=== PATIENT | male | born 1955 ===

== ENCOUNTER 2021-08-31 12:11 | Emergency (ER) | payer OTHER, SELFPAY ==
--- NOTE | ~2021-08-31 | XR_ITS ---
EXAMINATION: XR WRIST, RIGHT CLINICAL INFORMATION: Fall. Wrist pain. COMPARISON: None TECHNIQUE: PA, lateral, and oblique views of the right wrist. FINDINGS: Severe radiocarpal joint space narrowing with prominent bony remodeling, subchondral sclerosis, and marginal osteophytes. More moderate osteoarthritis at the triscaphe and 1st carpometacarpal joints. Widening of the scapholunate interval, consistent with a ligament tear. Proximal migration of the capitate, consistent with SLAC wrist. No displaced fracture. Evaluation is somewhat limited due to advanced osteoarthritis. XR/XR wrist RT 2V IMPRESSION: Severe radiocarpal osteoarthritis with bony remodeling. More moderate osteoarthritis at the triscaphe and 1st carpometacarpal joints. Widening of the scapholunate interval, consistent with a ligament injury. Proximal migration of the capitate, consistent with SLAC wrist. No displaced fracture, however, evaluation is limited due to advanced osteoarthritis.
[2021-08-31 13:13] VITALS: BP 164/78; PULSE 50; RESP 16; TEMP 36.6; O2SAT 98; BMI 23.6
--- NOTE | 2021-08-31 15:03 | ED_ITS ---
HPI - Fall General Chief Complaint: Extremity Injury, Upper Stated Complaint: R wrist pain Time Seen by Provider: 08/31/21 14:32 Source: patient Mode of arrival: ambulatory Limitations: no limitations History of Present Illness HPI Narrative: 65-year-old male with a past medical history of hypertension hyperlipidemia presenting to the ED with complaints of right hand/wrist pain after he had a mechanical fall yesterday where he was about to salts his driveway and he slipped and fell on a patch of ice. He tried to place his right hand/wrist out to catch his fall and since then he has been having pain. He reports he hit his head gently but did not lose consciousness and he does not believe he needs a CT scan is declining a CT scan of his brain. He denies being on any blood thinners. He denies any prolonged down time. He denies any headaches, dizziness, change in vision, neck pain, back pain, any other extremity pain, paresthesias, chest pain or shortness of breath or any other symptoms complaints or concerns at this time. MD complaint: fall Onset (ago): day(s) (Yesterday) Fall from: standing Fall witnessed: no Place fall occurred: home (Aside in his driveway about salt the driveway) Loss of consciousness: none Prolonged down time: no Symptoms prior to fall: none Context: tripped/slipped Location of injury - extremities: right: hand (And wrist) Severity: moderate Quality: aching Associated symptoms (after fall): denies Related Data Allergies Allergy/AdvReac Type Severity Reaction Status Date / Time prochlorperazine AdvReac Muscle Verified 08/31/21 13:13 [From Compazine] cramps Review of Systems Review of Systems: Constitutional : No Weight loss, No Fever, No Chills, No Night Sweats, No Fatigue, No Malaise ENT/Mouth : No Hearing loss, No Ear Pain, No Nasal Congestion, No Sinus Pain, No Hoarseness, No sore throat, No Rhinorrhea, No Swallowing Difficulty Eyes: No Eye Pain, No Swelling, No Redness, No Foreign Body, No Discharge, No Vision Changes Cardiovascular : No Chest Pain, No SOB, No Dyspnea on Exertion, No Orthopnea, No Edema, No Palpitations Respiratory : No Cough, No Sputum, No Wheezing, No Smoke Exposure, No Dyspnea Gastrointestinal : No Nausea, No Vomiting, No Diarrhea, No Constipation, No abdominal Pain, No Hematochezia, No Melena Genitourinary : no irregular bleeding, No Dysuria, No Urinary Frequency, No Hematuria, No Urinary Incontinence, No Urgency, No Flank Pain, No Urinary Flow Changes, No Hesitancy Musculoskeletal : + right hand/wrist joint pain, No Myalgias, No Joint Swelling Skin : No Skin Lesions, No rash Neuro : No Weakness, No Numbness, No Paresthesias, No Loss of Consciousness, No Dizziness, No Headache Psych : No Anxiety/Panic, No Depression, No SI/HI/AH/VH, No Social Issues, Heme/Lymph: No Bruising, No Bleeding,No Lymphadenopathy Endocrine : No Polyuria, No Polydipsia, No Temperature Intolerance Yes all other systems are reviewed and are negative [facility] Past Medical History Attestation statement: The following information was validated with the patient. Medical History HTN (hypertension) Hyperlipidemia Surgical History H/O heart artery stent Social History Social History Advance Directives: No Advance Directives Information Provided: No Physical Exam Vital Signs: Vital Signs: Last Vital Signs Temp 98 F 08/31/21 13:13 Pulse 50 08/31/21 13:13 Resp 16 08/31/21 13:13 BP 164/78 H 08/31/21 13:13 Pulse Ox 98 08/31/21 13:13 BMI result Body Mass Index 23.6 vital signs have been reviewed as normal and appeared to be correct. Blood pressure normal. Heart rate normal. Respiration rate normal. Temperature normal. Oxygen saturation normal. Appearance: Alert. Oriented X3. No acute distress. Head: Normal external exam. Normocephalic. Atraumatic. No Piper signs noted. No raccoon eyes noted Eyes: PERRLA. EOMI. Conjunctiva and sclera normal. Eyelids normal. ENT: EAC normal. TM's Normal. No septal hematoma noted. No hemotympanum noted. Pharynx normal. Uvula midline. Moist mucous membranes. No trismus noted. No drooling noted. No muffled voice noted. Neck: Normal inspection. Neck supple. FROM. No adenopathy. No meningeal signs. CVS: Normal heart rate and rhythm. Heart sound normal. Pulses normal throughout. Respiratory: No respiratory distress. Painless inspiration. Back: Full range of motion noted. No rashes/lesion/induration/fluctuance or signs of infection noted. Skin: Skin warm and dry. Normal skin color. Normal skin turgor. No rashes/lesions/lacerations noted. Extremities: To right hand/wrist joint patient has mild tenderness to palpation to the carpals and he does have limited range of motion with flexion and dorsiflexion of the wrist although he reports that this is chronic. He does have some soft tissue swelling. No obvious ligamentous or tendon injury noted on my exam at this time. No edema noted. No signs of infection. Olguin all other Extremities exhibit normal range of motion and nontender. Neuro: Oriented X 3. No motor deficit. No sensory deficit. Reflexes normal. Normal steady gait. No focal neuro deficits noted. Vascular: + radial pulses. Normal cap refill. No cyanosis noted to upper extremity nails Course Course Course Narrative: 65-year-old male with a past medical history of hypertension hyperlipidemia presenting to the ED with complaints of right hand/wrist pain after he had a mec hanical fall yesterday where he was about to salts his driveway and he slipped and fell on a patch of ice. He tried to place his right hand/wrist out to catch his fall and since then he has been having pain. He reports he hit his head gently but did not lose consciousness and he does not believe he needs a CT scan is declining a CT scan of his brain. He denies being on any blood thinners. He denies any prolonged down time. He denies any headaches, dizziness, change in vision, neck pain, back pain, any other extremity pain, paresthesias, chest pain or shortness of breath or any other symptoms complaints or concerns at this time. 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 No displaced fractures however limited evaluation due to advanced osteoarthritis. Therefore at this time will place and a wrist splint and treat symptomatically and instruct patient to follow-up with orthopedics and to return if any new or worsening symptoms. Patient understands agrees with this plan. Procedures Orthopedic Splinting/Casting Injury #1: Side: right Upper Extremity Injury Location: wrist and hand Upper Extremity Immobilizer: thumb spica MDM - Fall Medical Records Attestation: I reviewed the patient's medical records. Imaging Data Right wrist x-ray: Attestation: I personally reviewed and interpreted this imaging study as follows: Radiologist's impression: FINDINGS: Severe radiocarpal joint space narrowing with prominent bony remodeling, subchondral sclerosis, and marginal osteophytes. More moderate osteoarthritis at the triscaphe and 1st carpometacarpal joints. Widening of the scapholunate interval, consistent with a ligament tear. Proximal migration of the capitate, consistent with SLAC wrist. No displaced fracture. Evaluation is somewhat limited due to advanced osteoarthritis.? XR/XR wrist RT 2V IMPRESSION: Severe radiocarpal osteoarthritis with bony remodeling. More moderate osteoarthritis at the triscaphe and 1st carpometacarpal joints. ? Widening of the scapholunate interval, consistent with a ligament injury. Proximal migration of the capitate, consistent with SLAC wrist. ? No displaced fracture, however, evaluation is limited due to advanced osteoarthritis Discharge Plan Discharge Clinical Impression: Fall, Right wrist sprain, Injury of ligament of hand, SLAC (scapholunate advanced collapse) of wrist Patient Disposition: Home, Self-Care Instructions: Sprain (ED), Fall Prevention for Older Adults (ED) Referrals: Gamaliel Gotti MD [Physician] - 2 days (Call tomorrow to make a follow-up appointment within the next 1-2 weeks) Deedee Goldberg NP [Primary Care Provider] - 2 days Print Language: Norwegian
== END 2021-08-31 15:27 | disposition home or self-care (01) ==
PROVIDERS: Emergency Provider Emergency Medicine; PCP Nurse Practitioner Family
DX: S63.601A Unspecified sprain of right thumb, initial encounter (principal); S63.501A Unspecified sprain of right wrist, initial encounter; M79.644 Pain in right finger(s); M25.531 Pain in right wrist; I10 Essential (primary) hypertension; E78.5 Hyperlipidemia, unspecified; W00.0XXA Fall on same level due to ice and snow, initial encounter; Y93.9 Activity, unspecified; Y92.9 Unspecified place or not applicable; Y99.9 Unspecified external cause status; Z79.899 Other long term (current) drug therapy
CPT/HCPCS: 29130; 73100; 99283; 99284

== ENCOUNTER → 2021-09-07 14:31 | Outpatient (BNVA) | payer OTHER, SELFPAY | PROVIDERS: PCP Nurse Practitioner Family; Visit Provider Orthopaedic Surgery ==

== ENCOUNTER 2022-08-15 18:51 | Emergency (ER) | payer OTHER, SELFPAY ==
[2022-08-15 18:52] VITALS: BP 167/92; PULSE 171; RESP 18; TEMP 36.6; O2SAT 98; BMI 21.2
--- NOTE | 2022-08-15 18:54 | ED.ARRPALP ---
HPI - Arrhythmia/Palpitations General Chief Complaint: Arrhythmia/Palpitations Stated Complaint: SVT? heart palpitations Time Seen by Provider: 08/15/22 18:57 Related Data Home Medications Medication Instructions Recorded Confirmed atorvastatin 10 mg tablet 10 mg PO BEDTIME 09/07/21 albuterol sulfate 90 mcg/actuation 2 puff inhalation Q6H PRN wheezing 07/27/22 aerosol inhaler inhalational spacing device #1 ea 07/27/22 ([facility] spacer) metoprolol succinate 25 mg 25 mg PO DAILY 07/27/22 tablet,extended release 24 hr valsartan 80 mg tablet 80 mg PO DAILY 07/27/22 Previous Rx's Medication Instructions Recorded azithromycin 250 mg tablet See Rx Instructions PO .COMPLEX #6 07/27/22 tabs Allergies Allergy/AdvReac Type Severity Reaction Status Date / Time prochlorperazine AdvReac Muscle Verified 08/15/22 19:06 [From Compazine] cramps PMFSH Past Medical History Medical History (Updated 08/15/22 @ 21:13 by Tegan Murry MD) HTN (hypertension) Hyperlipidemia SVT (supraventricular tachycardia) Surgical History H/O heart artery stent Social History Social History Smoked in Last 30 Days: No Use of substances other than those prescribed or required for medical reasons: No Advance Directives: No Advance Directives Information Provided: Yes Current occupational status: employed and retired 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 He feels fast heart rate in his throat. No SOB, dizziness, chest pain. Attempted vagal maneuvers and took metoprolol at home with no improvement. HR 170s in triage. SBP 160s. Taken back to treatment room. Medications Administered Discontinued Medications Generic Name Dose Route Start Last Admin Trade Name Carringtonq PRN Reason Stop Dose Admin Adenosine 6 mg 08/15/22 19:02 08/15/22 19:07 Adenosine 6 Mg/2 Ml Vial IVPUSH 08/15/22 19:03 6 mg STAT STA Administration Medical Decision Making Lab Data 08/15/22 19:17 08/15/22 19:17 Labs: Lab Results 08/15/22 08/15/22 08/15/22 Range/Units 19:17 19:17 19:17 WBC 9.8 (4.8-10.8) X10*3/uL RBC 4.59 L (4.60-5.80) X10*6/uL Hgb 14.1 (14.0-18.0) g/dl Hct 41.0 L (42.0-52.0) % MCV 89.3 (80.0-98.0) fL MCH 30.7 (27.0-33.0) pg MCHC 34.4 (31.0-36.0) g/dl RDW 13.4 (11.0-16.0) % Plt Count 188 (160-400) X10*3/uL MPV 9.4 (9.4-12.4) fL Immature Gran % (Auto) 0.2 (0.0-0.4) % Neut % (Auto) 58.1 (45-73) % Lymph % (Auto) 27.3 (20-40) % [place] % (Auto) 12.7 H (2-11) % Eos % (Auto) 1.0 (0-4) % Baso % (Auto) 0.7 (0-2) % Lymph # (Auto) 2.7 (1.2-4.9) X10*3/uL [place] # (Auto) 1.2 (0.1-1.2) X10*3/uL Eos # (Auto) 0.1 (0.0-0.4) X10*3/uL Baso # (Auto) 0.1 (0.0-0.2) X10*3/uL Abs Immat Gran (auto) 0.02 (0.00-0.03) X10*3/uL Absolute Neuts (auto) 5.7 (2.0-8.3) x10*3/uL Absolute Nucleated RBC 0.000 (0.0-0.012) X10*3/uL Nucleated RBC % (auto) 0.0 (0.0-0.2) /100WBC PT (10.0-13.1) SEC INR (0.9-1.1) Sodium 138 (135-145) mmol/L Potassium 3.3 (3.3-5.1) mmol/L Chloride 104 (96-108) mmol/L Carbon Dioxide 24 (22-29) mmol/L Anion Gap 13 (12-20) BUN 19 H (9-16) mg/dL Creatinine 0.87 (0.5-1.4) mg/dL Estim Creat Clear Calc 72.9 Estimated GFR > 60 Random Glucose 112 (60-115) mg/dL Calcium 9.2 (8.4-10.2) mg/dL Total Bilirubin 0.4 (0.0-1.0) mg/dL Direct Bilirubin < 0.2 (0.0-0.5) mg/dL AST 24 (5-37) U/L ALT 18 (0-40) U/L Alkaline Phosphatase 57 (39-117) U/L Troponin I High Sens 4.1 (<3.5-35.0) ng/L B-Natriuretic Peptide (<100) pg/mL Total Protein 6.3 L (6.5-8.0) g/dL Albumin 3.7 (3.5-5.0) g/dL 08/15/22 08/15/22 Range/Units 19:17 19:17 WBC (4.8-10.8) X10*3/uL RBC (4.60-5.80) X10*6/uL Hgb (14.0-18.0) g/dl Hct (42.0-52.0) % MCV (80.0-98.0) fL MCH (27.0-33.0) pg MCHC (31.0-36.0) g/dl RDW (11.0-16.0) % Plt Count (160-400) X10*3/uL MPV (9.4-12.4) fL Immature Gran % (Auto) (0.0-0.4) % Neut % (Auto) (45-73) % Lymph % (Auto) (20-40) % [place] % (Auto) (2-11) % Eos % (Auto) (0-4) % Baso % (Auto) (0-2) % Lymph # (Auto) (1.2-4.9) X10*3/uL [place] # (Auto) (0.1-1.2) X10*3/uL Eos # (Auto) (0.0-0.4) X10*3/uL Baso # (Auto) (0.0-0.2) X10*3/uL Abs Immat Gran (auto) (0.00-0.03) X10*3/uL Absolute Neuts (auto) (2.0-8.3) x10*3/uL Absolute Nucleated RBC (0.0-0.012) X10*3/uL Nucleated RBC % (auto) (0.0-0.2) /100WBC PT 11.8 (10.0-13.1) SEC INR 1.0 (0.9-1.1) Sodium (135-145) mmol/L Potassium (3.3-5.1) mmol/L Chloride (96-108) mmol/L Carbon Dioxide (22-29) mmol/L Anion Gap (12-20) BUN (9-16) mg/dL Creatinine (0.5-1.4) mg/dL Estim Creat Clear Calc Estimated GFR Random Glucose (60-115) mg/dL Calcium (8.4-10.2) mg/dL Total Bilirubin (0.0-1.0) mg/dL Direct Bilirubin (0.0-0.5) mg/dL AST (5-37) U/L ALT (0-40) U/L Alkaline Phosphatase (39-117) U/L Troponin I High Sens (<3.5-35.0) ng/L B-Natriuretic Peptide 54 (<100) pg/mL Total Protein (6.5-8.0) g/dL Albumin (3.5-5.0) g/dL Discharge Plan Discharge Clinical Impression: SVT (supraventricular tachycardia) Patient Disposition: Home, Self-Care Instructions: Supraventricular Tachycardia (ED) Additional Instructions: Please increase your metoprolol to 50 mg (2 tablets of 25 mg) daily. Please follow-up with your primary care physician tomorrow. If you have any worsening or new symptoms, please return to the emergency room or call 911 Prescriptions: No Action valsartan 80 mg tablet 80 mg PO DAILY metoprolol succinate 25 mg tablet extended release 24 hr 25 mg PO DAILY albuterol sulfate 90 mcg/actuation HFA aerosol inhaler 2 puff inhalation Q6H PRN (Reason: wheezing) (DME) [facility] Spacer See Rx Instructions .ROUTE Q6H Qty: 1 Rx Instructions: As directed azithromycin 250 mg tablet See Rx Instructions PO .COMPLEX Qty: 6 0RF Rx Instructions: take 500 mg today (day 1), then 250 mg for 4 days (days 2-5) PO atorvastatin 10 mg tablet 10 mg PO BEDTIME Interventions: ED Discharge Assessment Last Done: 08/15/22 21:32 Discharge Date/Time: 08/15/22 21:33
[2022-08-15 18:58] VITALS: BP 149/93; PULSE 160; RESP 20; O2SAT 97
--- NOTE | 2022-08-15 19:04 | PC.NURSE ---
Pt medicated with Adenosine 6 mg @ 1903. SVT converting into NSR @ 90 bpm. MD at bedside.
[2022-08-15 19:05] VITALS: BP 151/84; PULSE 92; RESP 16; O2SAT 97
[2022-08-15] MEDS: Adenosine 6 MG/2 ML VIAL IVPUSH (19:07)
--- NOTE | 2022-08-15 19:07 | ECG_ITS ---
Test Reason : TACHYCARDIA Blood Pressure : / mmHG Vent. Rate : 161 BPM Atrial Rate : 000 BPM P-R Int : 000 ms QRS Dur : 138 ms QT Int : 316 ms P-R-T Axes : 000 -82 064 degrees QTc Int : 517 ms Wide QRS tachycardia vs SVT with aberrancy Right bundle branch block Left anterior fascicular block Bifascicular block Abnormal ECG No previous ECGs available Referred By: Tegan Murry Electronically Signed By:URIEL KING
--- NOTE | 2022-08-15 19:09 | ED_ITS ---
HPI - Arrhythmia/Palpitations General Chief Complaint: Arrhythmia/Palpitations Stated Complaint: SVT? heart palpitations Time Seen by Provider: 08/15/22 18:57 Source: patient Mode of arrival: ambulatory Limitations: no limitations History of Present Illness HPI narrative: Patient comes emergency room complaining of palpitations. Patient states he has history of SVT in the past. He has history of failed cardiac ablations. Patient states that usually he is able to stop the palpitations by doing vagal maneuvers. However, this time the vagal maneuvers failed. Patient denies chest pain or shortness of breath. Patient states that he feels the palpitations, otherwise no complaints. Patient is compliant with his medications, takes 25 mg of metoprolol succinate daily. Related Data Home Medications Medication Instructions Recorded Confirmed atorvastatin 10 mg tablet 10 mg PO BEDTIME 09/07/21 albuterol sulfate 90 mcg/actuation 2 puff inhalation Q6H PRN wheezing 07/27/22 aerosol inhaler inhalational spacing device #1 ea 07/27/22 (Homa Wendy C spacer) metoprolol succinate 25 mg 25 mg PO DAILY 07/27/22 tablet,extended release 24 hr valsartan 80 mg tablet 80 mg PO DAILY 07/27/22 Previous Rx's Medication Instructions Recorded azithromycin 250 mg tablet See Rx Instructions PO .COMPLEX #6 07/27/22 tabs Allergies Allergy/AdvReac Type Severity Reaction Status Date / Time prochlorperazine AdvReac Muscle Verified 08/15/22 19:06 [From Compazine] cramps Review of Systems Review of Systems: Constitutional : No Weight loss, No Fever, No Chills, No Night Sweats, No Fatigue, No Malaise ENT/Mouth : No Hearing loss, No Ear Pain, No Nasal Congestion, No Sinus Pain, No Hoarseness, No sore throat, No Rhinorrhea, No Swallowing Difficulty Eyes: No Eye Pain, No Swelling, No Redness, No Foreign Body, No Discharge, No Vision Changes Cardiovascular : No Chest Pain, No SOB, No Dyspnea on Exertion, No Orthopnea, No Edema, complaining of Palpitations Respiratory : No Cough, No Sputum, No Wheezing, No Smoke Exposure, No Dyspnea Gastrointestinal : No Nausea, No Vomiting, No Diarrhea, No Constipation, No abdominal Pain, No Hematochezia, No Melena Genitourinary : no irregular bleeding, No Dysuria, No Urinary Frequency, No Hematuria, No Urinary Incontinence, No Urgency, No Flank Pain, No Urinary Flow Changes, No Hesitancy Musculoskeletal : No joint pain, No Myalgias, No Joint Swelling Skin : No Skin Lesions, No rash Neuro : No Weakness, No Numbness, No Paresthesias, No Loss of Consciousness, No Dizziness, No Headache Psych : No Anxiety/Panic, No Depression, No SI/HI/AH/VH, No Social Issues, Heme/Lymph: No Bruising, No Bleeding,No Lymphadenopathy Endocrine : No Polyuria, No Polydipsia, No Temperature Intolerance [facility] Past Medical History Medical History (Updated 08/15/22 @ 21:13 by Tegan Murry MD) HTN (hypertension) Hyperlipidemia SVT (supraventricular tachycardia) Surgical History H/O heart artery stent Social History Social History Smoked in Last 30 Days: No Use of substances other than those prescribed or required for medical reasons: No Advance Directives: No Advance Directives Information Provided: Yes Current occupational status: employed and retired 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 Oriented X3. No acute distress. Eyes: Pupils equal, round and reactive to light. ENT: Pharynx normal. Neck: Normal inspection. Neck supple. No lymph nodes noted. No crepitus CVS: Tachycardia, regular rhythm, heart rate in the 170s, Pulses normal. Normal S1 and S2 Respiratory: No respiratory distress. Breath sounds normal. No Wheezing. No ral es Abdomen: Soft and nontender. No rigidity. No distention. Skin: Skin warm and dry. Normal skin color. Normal skin turgor. Extremities: No lower extremity edema. No Lacerations. No Rash Neuro: Oriented X 3. No motor deficit. No sensory deficit. Moving all extremities. No slurred speech. CN 2 through 12 grossly intact Psych: calm, cooperative, normal affect Course Course Course Narrative: -on arrival, EKG shows SVT with a heart rate of 160. Blood pressure in the 150 systolic. -patient received 6 mg of IV adenosine, heart rate improved to 82, blood pressure 151/84. Patient now asymptomatic. -of patient's labs are pending Medications Administered Discontinued Medications Generic Name Dose Route Start Last Admin Trade Name Radha PRN Reason Stop Dose Admin Adenosine 6 mg 08/15/22 19:02 08/15/22 19:07 Adenosine 6 Mg/2 Ml Vial IVPUSH 08/15/22 19:03 6 mg STAT STA Administration Medical Decision Making Medical Decision Making [facility] Narrative: -after the 6 mg of adenosine, patient remains in sinus rhythm, rate 61, blood pressure 124/79 -patient instructed to increase metoprolol to 50 mg b.i.d.. Patient states that he got a prescription yesterday for 90 days. Patient will increase his dose to 2 tablets of 25 mg until he runs out. 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 Lab Data 08/15/22 19:17 08/15/22 19:17 Labs: Lab Results 08/15/22 08/15/22 08/15/22 Range/Units 19:17 19:17 19:17 WBC 9.8 (4.8-10.8) X10*3/uL RBC 4.59 L (4.60-5.80) X10*6/uL Hgb 14.1 (14.0-18.0) g/dl Hct 41.0 L (42.0-52.0) % MCV 89.3 (80.0-98.0) fL MCH 30.7 (27.0-33.0) pg MCHC 34.4 (31.0-36.0) g/dl RDW 13.4 (11.0-16.0) % Plt Count 188 (160-400) X10*3/uL MPV 9.4 (9.4-12.4) fL Immature Gran % (Auto) 0.2 (0.0-0.4) % Neut % (Auto) 58.1 (45-73) % Lymph % (Auto) 27.3 (20-40) % [place] % (Auto) 12.7 H (2-11) % Eos % (Auto) 1.0 (0-4) % Baso % (Auto) 0.7 (0-2) % Lymph # (Auto) 2.7 (1.2-4.9) X10*3/uL [place] # (Auto) 1.2 (0.1-1.2) X10*3/uL Eos # (Auto) 0.1 (0.0-0.4) X10*3/uL Baso # (Auto) 0.1 (0.0-0.2) X10*3/uL Abs Immat Gran (auto) 0.02 (0.00-0.03) X10*3/uL Absolute Neuts (auto) 5.7 (2.0-8.3) x10*3/uL Absolute Nucleated RBC 0.000 (0.0-0.012) X10*3/uL Nucleated RBC % (auto) 0.0 (0.0-0.2) /100WBC PT (10.0-13.1) SEC INR (0.9-1.1) Sodium 138 (135-145) mmol/L Potassium 3.3 (3.3-5.1) mmol/L Chloride 104 (96-108) mmol/L Carbon Dioxide 24 (22-29) mmol/L Anion Gap 13 (12-20) BUN 19 H (9-16) mg/dL Creatinine 0.87 (0.5-1.4) mg/dL Estim Creat Clear Calc 72.9 Estimated GFR > 60 Random Glucose 112 (60-115) mg/dL Calcium 9.2 (8.4-10.2) mg/dL Total Bilirubin 0.4 (0.0-1.0) mg/dL Direct Bilirubin < 0.2 (0.0-0.5) mg/dL AST 24 (5-37) U/L ALT 18 (0-40) U/L Alkaline Phosphatase 57 (39-117) U/L Troponin I High Sens 4.1 (<3.5-35.0) ng/L B-Natriuretic Peptide (<100) pg/mL Total Protein 6.3 L (6.5-8.0) g/dL Albumin 3.7 (3.5-5.0) g/dL 08/15/22 08/15/22 Range/Units 19:17 19:17 WBC (4.8-10.8) X10*3/uL RBC (4.60-5.80) X10*6/uL Hgb (14.0-18.0) g/dl Hct (42.0-52.0) % MCV (80.0-98.0) fL MCH (27.0-33.0) pg MCHC (31.0-36.0) g/dl RDW (11.0-16.0) % Plt Count (160-400) X10*3/uL MPV (9.4-12.4) fL Immature Gran % (Auto) (0.0-0.4) % Neut % (Auto) (45-73) % Lymph % (Auto) (20-40) % [place] % (Auto) (2-11) % Eos % (Auto) (0-4) % Baso % (Auto) (0-2) % Lymph # (Auto) (1.2-4.9) X10*3/uL [place] # (Auto) (0.1-1.2) X10*3/uL Eos # (Auto) (0.0-0.4) X10*3/uL Baso # (Auto) (0.0-0.2) X10*3/uL Abs Immat Gran (auto) (0.00-0.03) X10*3/uL Absolute Neuts (auto) (2.0-8.3) x10*3/uL Absolute Nucleated RBC (0.0-0.012) X10*3/uL Nucleated RBC % (auto) (0.0-0.2) /100WBC PT 11.8 (10.0-13.1) SEC INR 1.0 (0.9-1.1) Sodium (135-145) mmol/L Potassium (3.3-5.1) mmol/L Chloride (96-108) mmol/L Carbon Dioxide (22-29) mmol/L Anion Gap (12-20) BUN (9-16) mg/dL Creatinine (0.5-1.4) mg/dL Estim Creat Clear Calc Estimated GFR Random Glucose (60-115) mg/dL Calcium (8.4-10.2) mg/dL Total Bilirubin (0.0-1.0) mg/dL Direct Bilirubin (0.0-0.5) mg/dL AST (5-37) U/L ALT (0-40) U/L Alkaline Phosphatase (39-117) U/L Troponin I High Sens (<3.5-35.0) ng/L B-Natriuretic Peptide 54 (<100) pg/mL Total Protein (6.5-8.0) g/dL Albumin (3.5-5.0) g/dL Discharge Plan Discharge Clinical Impression: SVT (supraventricular tachycardia) Patient Disposition: Home, Self-Care Instructions: Supraventricular Tachycardia (ED) Additional Instructions: Please increase your metoprolol to 50 mg (2 tablets of 25 mg) daily. Please follow-up with your primary care physician tomorrow. If you have any worsening or new symptoms, please return to the emergency room or call 911 Prescriptions: No Action valsartan 80 mg tablet 80 mg PO DAILY metoprolol succinate 25 mg tablet extended release 24 hr 25 mg PO DAILY albuterol sulfate 90 mcg/actuation HFA aerosol inhaler 2 puff inhalation Q6H PRN (Reason: wheezing) (DME) Homa Nguyen [facility] Spacer See Rx Instructions .ROUTE Q6H Qty: 1 Rx Instructions: As directed azithromycin 250 mg tablet See Rx Instructions PO .COMPLEX Qty: 6 0RF Rx Instructions: take 500 mg today (day 1), then 250 mg for 4 days (days 2-5) PO atorvastatin 10 mg tablet 10 mg PO BEDTIME
[2022-08-15 19:23] LABS: MANUAL DIFF FLAG NO
[2022-08-15 19:24] LABS: Basophils Absolute Auto 0.1 X10*3/uL (0.0-0.2); Basophils Percent Auto 0.7 % (0-2); Eosinophils Absolute Auto 0.1 X10*3/uL (0.0-0.4); Hemoglobin 14.1 g/dl (14.0-18.0); Imm Gran Abs Auto 0.02 X10*3/uL (0.00-0.03); Imm Gran Pct Auto 0.2 % (0.0-0.4); Lymphocytes Absolute Auto 2.7 X10*3/uL (1.2-4.9); Lymphocytes Percent Auto 27.3 % (20-40); Mean Corpuscular HGB Conc 34.4 g/dl (31.0-36.0); Mean Corpuscular Hemoglobin 30.7 pg (27.0-33.0); Mean Corpuscular Volume 89.3 fL (80.0-98.0); Mean Platelet Volume 9.4 fL (9.4-12.4); Monocytes Absolute Auto 1.2 X10*3/uL (0.1-1.2); Monocytes Percent Auto 12.7 % (2-11); Neutrophils Absolute Auto 5.7 x10*3/uL (2.0-8.3); Neutrophils Percent Auto 58.1 % (45-73); Platelet Count 188 X10*3/uL (160-400); Red Blood Count 4.59 X10*6/uL (4.60-5.80); Red Cell Distribution Width 13.4 % (11.0-16.0); White Blood Count 9.8 X10*3/uL (4.8-10.8)
[2022-08-15 19:29] LABS: Prothrombin Time 11.8 SEC (10.0-13.1)
[2022-08-15 20:02] LABS: Troponin-I High Sensitivity 4.1 ng/L (<3.5-35.0)
[2022-08-15 20:09] LABS: B Type Natriuretic Peptide 54 pg/mL (<100)
[2022-08-15 20:14] LABS: Alanine Aminotransferase 18 U/L (0-40); Albumin Level 3.7 g/dL (3.5-5.0); Alkaline Phosphatase 57 U/L (39-117); Anion Gap 13 (12-20); Aspartate Amino Transferase 24 U/L (5-37); Bilirubin Direct < 0.2 mg/dL (0.0-0.5); Bilirubin Total 0.4 mg/dL (0.0-1.0); Blood Urea Nitrogen 19 mg/dL (9-16); Calcium 9.2 mg/dL (8.4-10.2); Carbon Dioxide 24 mmol/L (22-29); Chloride 104 mmol/L (96-108); Creatinine Clr Calc Pharmacy 72.9; Estimated Glomerular Filt Rate > 60; Glucose Random 112 mg/dL (60-115); Potassium 3.3 mmol/L (3.3-5.1); Sodium 138 mmol/L (135-145); Total Protein 6.3 g/dL (6.5-8.0)
[2022-08-15 20:27] VITALS: BP 124/79; PULSE 70; RESP 10; O2SAT 96
--- NOTE | 2022-08-15 20:45 | PC.NURSE ---
pt resting comfortably on back on stretcher. pt's at bedside. VSS. skin pwd. pt reports 0/10 pain at this time
[2022-08-15 21:17] VITALS: BP 125/71; PULSE 62; RESP 18; TEMP 36.5; O2SAT 97
--- NOTE | 2022-08-15 21:17 | PC.NURSE ---
this rn assisted pt to bathroom at this time. pt ambulates with no difficulty. pt reports no pain or discomfort. this rn assisted pt back to bed. pt at bedside at this time
--- NOTE | 2022-08-15 21:31 | PC.NURSE ---
iv removed. pt ambulatory at discharge. pt denies pain at this time. skin pwd. pt provided with discharge packet. pt verbalized understanding of discharge plan
== END 2022-08-15 21:33 | disposition home or self-care (01) ==
PROVIDERS: Emergency Provider Emergency Medicine; PCP Nurse Practitioner Family
DX: I47.1 Supraventricular tachycardia (principal); R00.2 Palpitations; I10 Essential (primary) hypertension; E78.5 Hyperlipidemia, unspecified; Z79.899 Other long term (current) drug therapy; Z79.02 Long term (current) use of antithrombotics/antiplatelets
CPT/HCPCS: 36415; 80048; 80076; 83880; 84484; 85025; 85610; 93005; 96374; 99284; J0153

== ENCOUNTER 2022-11-16 15:01 | Outpatient (REF) | payer OTHER, SELFPAY ==
--- NOTE | ~2022-11-16 | XR_ITS ---
EXAMINATION: XR CHEST CLINICAL INFORMATION: Upper respiratory infection COMPARISON: None available. TECHNIQUE: 2 views of the chest were obtained. FINDINGS: No convincing evidence for an acute infiltrate. The lung angel are grossly clear the cardiac silhouette is felt to be within normal limits. The hilar regions do not appear pathologically enlarged. There is no effusion. Degenerative change in the thoracic spine. No compression injury. XR/XR chest 2V IMPRESSION: No convincing evidence for an acute process.
== END 2022-11-16 15:02 | disposition home or self-care (01) ==
LOC: HO.HMGCX 15:01
PROVIDERS: PCP Nurse Practitioner Family; Visit Provider Internal Medicine
DX: J06.9 Acute upper respiratory infection, unspecified (principal)
CPT/HCPCS: 71046

== ENCOUNTER 2022-12-01 19:25 | Emergency (ER) | payer OTHER, SELFPAY ==
--- NOTE | ~2022-12-01 | XR_ITS ---
EXAMINATION: XR CHEST CLINICAL INFORMATION: Palpitations. COMPARISON: Chest radiograph done on 11/16/2022. TECHNIQUE: Frontal view of the chest was obtained. FINDINGS: Interval development of subtle focal opacity is noted at the left cardiophrenic angle, may represent prominent fat versus adjacent pleural parenchymal disease. Otherwise, both lung bases are clear. The heart size is within normal limit. No evidence of any pleural effusion or pneumothorax. Visualized upper abdomen is unremarkable. XR/XR chest 1V IMPRESSION: Subtle opacity at the left cardiophrenic angle, appears new since the prior study dated 11/16/2022, may represent prominent epicardial pad of fat versus adjacent pleural parenchymal disease. No other significant change.
--- NOTE | 2022-12-01 07:09 | ECG_ITS ---
Test Reason : repeat Blood Pressure : / mmHG Vent. Rate : 062 BPM Atrial Rate : 062 BPM P-R Int : 176 ms QRS Dur : 154 ms QT Int : 474 ms P-R-T Axes : 035 -67 009 degrees QTc Int : 481 ms Normal sinus rhythm Right bundle branch block Left anterior fascicular block Bifascicular block Septal infarct , age undetermined Abnormal ECG When compared with ECG of 01-DEC-2022 19:29, Sinus rhythm has replaced Wide QRS tachycardia Vent. rate has decreased BY 86 BPM Referred By: Karthik Huerta Electronically Signed By:URIEL KING
[2022-12-01 19:26] VITALS: BP 192/99; PULSE 154; RESP 18; TEMP 36.7; O2SAT 97; BMI 24.3
--- NOTE | 2022-12-01 19:28 | ECG_ITS ---
Test Reason : SVT Blood Pressure : / mmHG Vent. Rate : 148 BPM Atrial Rate : 000 BPM P-R Int : 000 ms QRS Dur : 144 ms QT Int : 348 ms P-R-T Axes : 000 -88 046 degrees QTc Int : 546 ms Wide QRS tachycardia Right bundle branch block Left anterior fascicular block Bifascicular block Septal infarct , age undetermined Abnormal ECG When compared with ECG of 15-AUG-2022 19:01, No significant change was found Referred By: Dorys Batista Electronically Signed By:URIEL KING
[2022-12-01] MEDS: Adenosine 6 MG/2 ML VIAL IVPUSH (19:46)
--- NOTE | 2022-12-01 19:53 | ED.ARRPALP ---
HPI - Arrhythmia/Palpitations General Chief Complaint: Arrhythmia/Palpitations Stated Complaint: SVT Time Seen by Provider: 12/01/22 19:38 Source: patient Mode of arrival: ambulatory Limitations: no limitations History of Present Illness HPI narrative: 67-year-old male with a history of right bundle-branch block and SVT who presents emergency department for evaluation rapid heart rate. Patient states that the symptoms started at 18:50 hours while he was cooking in his kitchen. The symptoms started suddenly. He states that he felt like his pulse and his carotid artery was throbbing and this is similar to the symptoms that he has felt in the past when he went into SVT. He states that he tried his vagal maneuvers without any relief of his symptoms. He denied lightheadedness, dizziness, chest pain, shortness of breath or dyspnea on exertion. In reviewing his ED record he was here in the emergency department in July of 2022 and was chemically converted with adenosine 6 mg IV push. Related Data Home Medications Medication Instructions Recorded Confirmed atorvastatin 10 mg tablet 10 mg PO BEDTIME 09/07/21 11/16/22 albuterol sulfate 90 mcg/actuation 2 puff inhalation Q6H PRN wheezing 07/27/22 11/16/22 aerosol inhaler inhalational spacing device #1 ea 07/27/22 11/16/22 (Homa Nguyen [facility] spacer) valsartan 80 mg tablet 80 mg PO DAILY 07/27/22 11/16/22 metoprolol succinate 25 mg 50 mg PO DAILY 11/16/22 11/16/22 tablet,extended release 24 hr Previous Rx's Medication Instructions Recorded albuterol sulfate 90 mcg/actuation 1 inh inhalation QID PRN shortness 11/16/22 aerosol inhaler (Ventolin HFA) of breath or wheezing #8.5 grams azithromycin 250 mg tablet See Rx Instructions PO .COMPLEX #6 11/16/22 tabs prednisone 20 mg tablet 60 mg PO DAILY #9 tabs 11/16/22 Allergies Allergy/AdvReac Type Severity Reaction Status Date / Time prochlorperazine AdvReac Muscle Verified 11/16/22 14:49 [From Compazine] cramps Review of Systems Review of Systems: Yes all other systems are reviewed and are negative [facility] Past Medical History [facility] Narrative: Past medical history: Reviewed below, right bundle-branch block social history: He denies tobacco use. He occasionally drinks alcohol and did have 2 [employer] lemonades tonight. Denies drug use. 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 Exam Vital Signs: Vital Signs: Last Vital Signs Temp 98.0 F 12/01/22 20:10 Pulse 66 12/01/22 20:10 Resp 9 L 12/01/22 20:10 BP 140/82 H 12/01/22 20:10 Pulse Ox 96 12/01/22 20:10 O2 Del Method Room Air 12/01/22 20:10 BMI result Body Mass Index 24.3 Const: General: cooperative and no acute distress Orientation/consciousness: oriented to person and oriented to place Limitations: no limitations HEENT: Head: Yes normal to inspection, Yes normocephalic and Yes atraumatic Ears: external ears normal General nose exam: Normal external nose present Face and sinus: Yes normal facial exam Mouth: Normal oral and palatal mucosa present Throat: Yes posterior oropharynx normal Eyes: General: appearance normal, both eyes and all related structures Pupils: Equal, round and reactive pupils present Neck: Neck: Yes normal visual inspection, Yes no lymphadenopathy, Yes trachea midline and Yes supple Chest: Chest palpation & inspection: normal inspection of the chest and normal palpation of entire chest wall Resp: Effort & Inspection: normal respiratory effort and able to speak in complete sentences Auscultation: clear to auscultation bilaterally Cardio: Rate: tachycardic Rhythm: regular rhythm Heart sounds: S1 normal heart sound present, S2 normal heart sound present and no murmurs GI: Inspection: Yes normal to inspection Palpation (GI): Soft to palpation, nontender and no guarding Auscultation: normal bowel sounds : General: Yes no CVA tenderness Back/Spine/Pelvis: Back: no CVA tenderness Skin: General skin exam: no rashes or lesions noted Neuro: General: oriented to person and oriented to place Cranial nerves: Yes CN's II-XII intact bilaterally and Yes Equal, round and reactive pupils present Cognition (Neuro): normal cognition Motor exam (neuro): 5/5 motor strength present throughout Extrem: General: Yes normal to inspection Psych: Appearance: grossly normal Speech and movement: Normal speech and movement present Affect: normal affect Attitude: cooperative Thought process: Normal thought process present Thought content: Normal thought content present Medications Administered Discontinued Medications Generic Name Dose Route Start Last Admin Trade Name Freq PRN Reason Stop Dose Admin Adenosine 6 mg 12/01/22 19:43 12/01/22 19:46 Adenosine 6 Mg/2 Ml Vial IVPUSH 12/01/22 19:44 6 mg ONCE STA Administration Medical Decision Making Medical Decision Making [facility] Narrative: 67-year-old male with a history of SVT with right bundle-branch block presents emergency department for evaluation of palpitations which began at 16:50 hours. He had no other significant symptoms. Patient's physical examination did reveal tachycardia. Patient's initial 12 EKG revealed a wide complex tachycardia with a rate of 148. The patient was placed on a cardiac and O2 saturation monitor. He was given adenosine 6 mg IV push. He initially did not cardiovert but after approximately 10 minutes he did convert to a normal sinus rhythm with a right bundle-branch block. Patient was observed in the emergency department for 30 minutes any remained in a normal sinus rhythm therefore he was discharged home. He was advised to continue taking his medications as prescribed by his provider. Differential Diagnosis Differential diagnosis includes but is not limited to SVT, ventricular tachycardia Independent Interpretation I performed an independent interpretation of an: EKG Interpretation: My independent interpretation of the patient's 1st EKG done at 192 is as follows: Wide complex tachycardia with a rate of 148, prolonged QRS of 144 milliseconds, prolonged QTC of 546 milliseconds. My independent interpretation of the patient's 2nd EKG done at 1954 after receiving his 1 dose of adenosine 6 mg IV is as follows: Sinus tachycardia with rate of 62, normal OR interval of 176 milliseconds, prolonged QRS of 154 milliseconds, prolonged QTC of 481 milliseconds, right bundle-branch block with T-wave abnormalities consistent with a right bundle-branch block. Discharge Plan Discharge Clinical Impression: SVT (supraventricular tachycardia), Right bundle branch block Patient Disposition: Home, Self-Care Instructions: Supraventricular Tachycardia (ED) Additional Instructions: You presented with a wide complex supraventricular tachycardia secondary to a right bundle-branch block. You received adenosine 6 mg IV push in you converted your heart rate to a sinus rhythm with a right bundle-branch block. Continue taking your medications as prescribed by your doctor. If you present to again to emergency department for your rapid heart rate make sure you your providers that you have SVT with a right bundle-branch block. Follow-up with your doctor in 2 days. Please return to the emergency department if your symptoms get worse or if you develop any symptoms that are concerning to you. Prescriptions: No Action valsartan 80 mg tablet 80 mg PO DAILY albuterol sulfate 90 mcg/actuation HFA aerosol inhaler 2 puff inhalation Q6H PRN (Reason: wheezing) (DME) Homa Nguyen [facility] Spacer See Rx Instructions .ROUTE Q6H Qty: 1 Rx Instructions: As directed metoprolol succinate 25 mg tablet extended release 24 hr 50 mg PO DAILY azithromycin 250 mg tablet See Rx Instructions PO .COMPLEX Qty: 6 0RF Rx Instructions: take 500 mg today (day 1), then 250 mg for 4 days (days 2-5) PO prednisone 20 mg tablet 60 mg PO DAILY Qty: 9 0RF albuterol sulfate [Ventolin HFA] 90 mcg/actuation HFA aerosol inhaler 1 inh inhalation QID PRN (Reason: shortness of breath or wheezing) Qty: 8.5 1RF atorvastatin 10 mg tablet 10 mg PO BEDTIME Interventions: ED Discharge Assessment Last Done: 12/01/22 21:17 Discharge Date/Time: 12/01/22 21:19
--- NOTE | 2022-12-01 19:55 | PC.NURSE ---
Pt a&o, no sob, pt medicated for rapid heart rate, provider at the bedside, able to control heart rate, EKG completed, will continue to monitor. Pt on bedside monitor.
[2022-12-01 20:10] VITALS: BP 140/82; PULSE 66; RESP 9; TEMP 36.7; O2SAT 96
--- NOTE | 2022-12-01 20:13 | PC.NURSE ---
pt a&o denies any sob or chest pain at this time, heart rate controlled. Vital signs are stable. Will continue monitor.
--- NOTE | 2022-12-01 20:17 | PC.NURSE ---
Per provider, no labs to be drawn.
== END 2022-12-01 21:19 | disposition home or self-care (01) ==
PROVIDERS: Emergency Provider Emergency Medicine Emergency Medical Services; PCP Nurse Practitioner Family
DX: R00.2 Palpitations (principal); I47.1 Supraventricular tachycardia; I45.10 Unspecified right bundle-branch block; Z79.899 Other long term (current) drug therapy
CPT/HCPCS: 71045; 93005; 96374; 99284; 99285; J0153

== ENCOUNTER 2023-08-10 10:57 | Outpatient (AMB) | payer OTHER, SELFPAY ==
[2023-08-10 11:52] VITALS: BP 132/80; PULSE 78; TEMP 37.8; O2SAT 94
--- NOTE | 2023-08-10 11:52 | AM.OFFWIN_ITS ---
Intake Vital Signs 08/10/23 11:52 Height 5 ft 8 in BP 132/80 Blood Pressure Location Lt brachial Position Sitting Pulse 78 Pulse Source Pulse Oximeter Temp 100.1 F Temp Source Oral Pulse Oximetry (%) 94 Oxygen Delivery Method Room Air Intake Visit Reasons: EST/cough and chest congestion ([phone]) Intake Note: pt is here today for cough and chest congestion, fatigue started 4 days. pt states at home covid test was negative Patient Tobacco Use Status: Never used Tobacco Allergies prochlorperazine [From Compazine] Adverse Reaction (Verified 08/10/23 11:55) Muscle cramps Do you need a note to return to daycare/school/sports/work: No HPI HPI Comments History of Present Illness Details 67 Y/O MALE Presents to walk in clinic w ith c/o chest congestion and cough x 4 days. Denies F/C/N or V. 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 Review of Systems Const All systems reviewed & are unremarkable except as noted in HPI and below Physical Exam Vital Signs: Last Vital Signs Temp 100.1 F 08/10/23 11:52 Pulse 78 08/10/23 11:52 BP 132/80 08/10/23 11:52 Pulse Ox 94 08/10/23 11:52 Oxygen Delivery Method Room Air 08/10/23 11:52 HEENT Head: Yes normal to inspection and Yes normocephalic Ears: external ears normal and TM's normal bilaterally General nose exam: Normal nares present Face and sinus: Yes sinuses nontender Mouth: Normal oral and palatal mucosa present and moist mucous membranes Throat: Yes posterior oropharynx normal, Yes tonsils normal and Yes uvula midline Resp Effort & Inspection: normal respiratory effort Auscultation: clear to auscultation bilaterally Cardio Rate: regular rate Rhythm: regular rhythm Assessment & Plan Assessment & Plan (1) Cough in adult: Code(s): R05.9 - Cough, unspecified Plan: - Rest - warm fluids - Acetamino for pain relief Medications: New benzonatate 200 mg (2 x 100 mg) PO TID 30 caps 0RF acetaminophen 500 mg PO Q6H PRN 60 caps 0RF fever Coding Level of Care Code Est Pt Level 3 (04742) Diagnoses Cough in adult R05.9 Time Spent (min) 15
== END 2023-08-10 12:50 | disposition home or self-care (01) ==
PROVIDERS: PCP Nurse Practitioner Family; Visit Provider Nurse Practitioner Family
DX: R05.9 Cough, unspecified (principal)
CPT/HCPCS: 99213